=== PATIENT | female | born 1965 | race Two or more races ===

== ENCOUNTER 2021-04-13 10:48 | Emergency (ER) | payer MEDICAID, OTHER ==
[~2021-04-13] VITALS: Ht 167.6 cm; Wt 90.7 kg
[2021-04-13] MEDS ORDERED: ASPirin 81 mg TAB PO ONE (11:30)
[2021-04-13] MEDS ORDERED: HYDROcodone-ACET 10/325MG TAB PO ONE (11:45)
[2021-04-13 12:26] LABS: Basophils # (auto) 0.1 10 ^3/uL (0-0.2); Basophils % (auto) 0.6 % (0.0-2.0); Eosinophils # (auto) 0.5 10 ^3/uL (0-0.8); Eosinophils % (auto) 4.3 % (0.0-7.0); Hematocrit 39.5 % (36.0-46.0); Hemoglobin 12.7 g/dL (12.2-16.2); Lymphocytes # (auto) 2.2 10 ^3/uL (0.4-5.4); Lymphocytes % (auto) 19.3 % (10.0-50.0); Mean Corpuscular Hemoglobin 28.5 pg (28.0-32.0); Mean Corpuscular Hgb Conc. 32.3 g/dL (32.0-36.0); Mean Corpuscular Volume 88.4 fL (80.0-100.0); Monocytes # (auto) 0.7 10 ^3/uL (0-1.3); Monocytes % (auto) 6.1 % (0.0-12.0); Neutrophils # (auto) 7.9 10 ^3/uL (1.6-8.6); Neutrophils % (auto) 69.7 % (37.0-80.0); Nucleated Red Blood Cells % 0.4 %; Red Blood Cells 4.47 10^6/uL (4.0-5.20); Red Cell Distribution Width 14.4 % (11.8-14.3); White Blood Cell 11.3 10^3/uL (4.4-10.8)
[2021-04-13 12:38] LABS: Albumin 3.3 g/dL (3.4-5.0); Calcium 8.8 mg/dL (8.5-10.1); Potassium 4.3 mmol/L (3.5-5.1)
[2021-04-13 12:42] LABS: BUN/Creatinine Ratio 15.2; Bilirubin, Total 0.3 mg/dL (0.2-1.0); Total Protein 7.3 g/dL (6.4-8.2)
[2021-04-13] MEDS ORDERED: IBUPROFEN 800 MG TAB PO ONE (14:45)
[2021-04-13 14:57] VITALS: BP 138/78
== END 2021-04-13 15:51 | disposition home or self-care (01) ==
LOC: ER 10:48 → EDBD 10:48 → ER 14:57
DX: R07.89 Other chest pain (principal); I10 Essential (primary) hypertension; E11.9 Type 2 diabetes mellitus without complications
CPT/HCPCS: 36415; 71045; 80053; 83880; 84443; 84484; 85025; 93005

== ENCOUNTER 2022-09-06 08:23 | Emergency (ER) | payer MEDICAID ==
[~2022-09-06] VITALS: Ht 167.6 cm; Wt 92.2 kg
[2022-09-06] MEDS ORDERED: LORazepam 2MG/ML-1ML VIAL IM ONE (09:30)
[2022-09-06] MEDS ORDERED: KETOROLAC TROMETH 60MG/2ML VIAL IM ONE (12:30)
[2022-09-06] MEDS ORDERED: IBU600T PO (12:55)
[2022-09-06 14:35] VITALS: BP 127/73
== END 2022-09-06 14:41 | disposition home or self-care (01) ==
LOC: ER 08:23 → EDBD 08:23 → ER 14:41
DX: T14.8XXA Other injury of unspecified body region, initial encounter (principal); R51.9 Headache, unspecified; M54.2 Cervicalgia; M25.512 Pain in left shoulder; M25.511 Pain in right shoulder; I10 Essential (primary) hypertension; E11.9 Type 2 diabetes mellitus without complications; V49.9XXA Car occupant (driver) (passenger) injured in unspecified traffic accident, initial encounter; Y93.89 Activity, other specified; Y92.410 Unspecified street and highway as the place of occurrence of the external cause; Y99.8 Other external cause status
CPT/HCPCS: 70450; 72125; 72128; 72131; 96372; 99285; J1885; J2060

== ENCOUNTER 2024-04-06 07:43 | Emergency (ER) | payer MEDICAID ==
[~2024-04-06] VITALS: Ht 167.6 cm; Wt 109.1 kg
[~2024-04-06 07:43] MED LIST: IBU600T PO
[2024-04-06 07:53] VITALS: BP 136/71; PULSE 107; RESP 20; TEMP 97; O2SAT 100
== END 2024-04-06 08:20 | disposition left against medical advice (07) ==
LOC: ER 07:43
DX: R10.9 Unspecified abdominal pain (principal); R30.9 Painful micturition, unspecified; K59.00 Constipation, unspecified; Z53.21 Procedure and treatment not carried out due to patient leaving prior to being seen by health care provider